=== PATIENT | male | born 1985 | race American Indian/Alaskan Native ===

== ENCOUNTER 2019-09-16 15:15 | Emergency (ER) | payer OTHER ==
[2019-09-16 15:24] VITALS: BP 142/91
--- NOTE | 2019-09-16 15:34 | Emergency Department Report ---
Chief Complaint: Headache Stated Complaint: HBP Time Seen by Provider: 09/16/19 15:23 - HPI History of Present Illness: This is 34 y.o. M. that presents to the ER with elevated blood pressure not control with current medication. Patient states he was seeing a PCP at [facility] but switched insurance and can't follow up with. Patient states blood pressure has been elevated for 2-3 weeks. He started taking 2 amolodipine 5 mg pills daily with no improvement of blood pressure. He denies visual changes, headache, chest pain, palpitations, diaphoresis, or numbness or tingling. - Exam Vital Signs: Vital Signs 09/16/19 15:20 Temperature 97.5 F L Pulse Rate 81 Respiratory 18 Rate Blood Pressure 142/91 O2 Sat by Pulse 97 Oximetry MSE screening note: Focused history and physical exam performed. Due to findings the following was ordered: ED Medical Decision Making - Medical Decision Making This is a 34-year-old male that presents with elevated blood pressure. PMH of HTN. Patient is stable and was examined by me. He is asymptomatic. Start amlodipine and HCTZ. Given DASH diet. Patient was instructed to Follow-up with a primary care doctor in 1 week or if symptoms worsen and continue return to emergency room as soon as possible. At time of discharge, the patient does not seem toxic or ill in appearance. No acute signs of distress noted. Patient agrees to discharge treatment plan of care. No further questions noted by the patient. ED Disposition for MSE Clinical Impression: Asymptomatic hypertension Disposition: DC-01 TO HOME OR SELFCARE Is pt being admited?: No Condition: Stable Instructions: Hypertension (ED), DASH Eating Plan (ED) Additional Instructions: Follow up with a primary care doctor from the referrals list below. You will need to get refills from a primary care doctor. Return to the ER if you start to experience chest pain, palpitations, visual changes, and headache. Prescriptions: amLODIPine 10 mg PO DAILY #30 tab hydroCHLOROthiazide [Hctz] 12.5 mg PO QDAY 2 Days #30 capsule Referrals: [facility] [Outside] - 3-5 Days [facility] [Provider Group] - 3-5 Days [facility] [Provider Group] - 3-5 Days Forms: Work/School Release Form(ED) Time of Disposition: 15:56
== END 2019-09-16 16:02 | disposition home or self-care (01) ==
LOC: ED 15:15
DX: I10 Essential (primary) hypertension (principal)
CPT/HCPCS: 99282